=== PATIENT | female | born 1955 | race Caucasian/White ===

== ENCOUNTER → 2017-03-28 | Outpatient (CLI) | payer OTHER ==
[~2017-03-28] MED LIST: ALPR-475 PO; CYCL5TAB PO; GABA-826 PO; HYDR1TAB12 PO; MULT-224 PO; ST.300CA PO
== END | disposition home or self-care (01) ==
LOC: CFH 15:31
PROVIDERS: ATTEND Registered Nurse Registered Nurse First Assistant
DX: M51.36 Other intervertebral disc degeneration, lumbar region (principal); M41.86 Other forms of scoliosis, lumbar region; M51.26 Other intervertebral disc displacement, lumbar region; L05.91 Pilonidal cyst without abscess
CPT/HCPCS: 72110; 72148

== ENCOUNTER → 2017-06-06 | Outpatient (CLI) | payer OTHER ==
[~2017-06-06] MED LIST changes: +GABA600T2 PO; +VENL37.52 PO; +VENL75CA PO
[2017-06-06 12:42] LABS: BASOPHILS # (AUTO) 0.05 x10^3/uL (0-0.1); BASOPHILS % (AUTO) 1 % (0-1); EOSINOPHILS # (AUTO) 0.07 x10^3/uL (0-0.4); EOSINOPHILS % (AUTO) 1 % (1-7); LYMPHOCYTES # (AUTO) 1.95 x10^3/uL (1-3.4); LYMPHOCYTES % (AUTO) 32 % (22-44); MD NO; MEAN CORPUSCULAR HEMOGLOBIN 31.6 pg (27.0-34.8); MEAN CORPUSCULAR HGB CONC 34.3 g/dL (32.4-35.8); MEAN CORPUSCULAR VOLUME 91.9 fL (80-100); MEAN PLATELET VOLUME 8.8 fL (7.4-10.4); MONOCYTES # (AUTO) 0.69 x10^3/uL (0.2-0.8); MONOCYTES % (AUTO) 11 % (2-9); NEUTROPHILS % (AUTO) 55 % (42-75); PLATELET COUNT 198 x10^3/uL (130-400); RED BLOOD COUNT 4.72 x10^6/uL (3.82-5.3); RED CELL DISTRIBUTION WIDTH 12.4 % (9.6-15.2)
[2017-06-06 12:46] LABS: MICROSCOPIC NOT IND
[2017-06-06 12:47] LABS: CULTURE INDICATED? NO
[2017-06-06 12:53] LABS: INTERNATIONAL NORMALIZED RATIO 0.93 (0.93-1.1); PROTHROMBIN TIME 9.7 Seconds (9.6-11.5)
[2017-06-06 12:57] LABS: ANION GAP 8 mmol/L (5-15); CALCIUM 9.1 mg/dL (8.5-10.1); CHLORIDE 105 mmol/L (98-107); CREATININE 1.05 mg/dL (0.55-1.02)
== END | disposition home or self-care (01) ==
LOC: STAR 11:34
PROVIDERS: ATTEND Neurological Surgery
DX: Z01.818 Encounter for other preprocedural examination (principal); R94.31 Abnormal electrocardiogram [ECG] [EKG]; M51.36 Other intervertebral disc degeneration, lumbar region
CPT/HCPCS: 36415; 71046; 80048; 81003; 85025; 85610; 85730; 93005

== ENCOUNTER 2017-06-21 06:50 | Inpatient (IN) | payer OTHER ==
[~2017-06-21] VITALS: Ht 167.6 cm; Wt 81.9 kg
[2017-06-21] MEDS ORDERED: LACTATED RINGERS 1,000 ML IV SCH (07:07)
[2017-06-21] MEDS ORDERED: BUPIVACAINE/PF 0.5% ONE (07:08)
[2017-06-21] MEDS ORDERED: THROMBIN 5,000 UNIT VIAL TP ONE (07:08)
[2017-06-21] MEDS ORDERED: EPINEPHRINE 1 MG/ML, 1ML ONE (07:08)
[2017-06-21] MEDS ORDERED: BACITRACIN 50,000 UNIT ONE (07:09)
[2017-06-21] MEDS ORDERED: VANCOMYCIN 1,000 MG ONE (07:09)
[2017-06-21] MEDS ORDERED: FENTANYL PF 250 MCG/5ML ONE (08:17)
[2017-06-21] MEDS ORDERED: MIDAZOLAM 1 MG/ML, 2ML ONE (08:17)
[2017-06-21] MEDS ORDERED: PROPOFOL 50 ML ONE (08:17)
[2017-06-21] MEDS ORDERED: CEFAZOLIN 1,000 MG ONE (08:18)
[2017-06-21] MEDS ORDERED: SUCCINYLCHOLINE 20 MG/ML, 10ML ONE (08:18)
[2017-06-21] MEDS ORDERED: PROPOFOL 10 MG/ML, 20ML ONE (08:18)
[2017-06-21] MEDS ORDERED: LIDOCAINE GEL 2%, 5ML ONE ×2 (08:18)
[2017-06-21] MEDS ORDERED: DEXAMETHASONE 4 MG/ML, 1ML ONE (08:18)
[2017-06-21] MEDS ORDERED: ONDANSETRON 2MG/ML, 2ML ONE (08:18)
[2017-06-21] MEDS ORDERED: LIDOCAINE-MPF 2% ,5ML ONE (08:20)
[2017-06-21] MEDS ORDERED: CLINDAMYCIN 150 MG/ML, 6ML ONE (10:02)
[2017-06-21] MEDS ORDERED: MIDAZOLAM 1 MG/ML, 2ML IV PRN (10:30)
[2017-06-21] MEDS ORDERED: ALBUTEROL/IPRATROPIUM 2.5MG/0.5MG, 3 ML NPPB PRN (10:30)
[2017-06-21] MEDS ORDERED: DIAZEPAM 5 MG/ML, 2ML IVPush PRN (10:30)
[2017-06-21] MEDS ORDERED: LABETALOL 5MG/ML, 20ML IV PRN (10:30)
[2017-06-21] MEDS ORDERED: OXYcodone 5 MG/5 ML ORAL.SOL UDC PO PRN (10:30)
[2017-06-21] MEDS ORDERED: LORazepam 2 MG/ML, 1ML IVPush PRN (10:30)
[2017-06-21] MEDS ORDERED: PROMETHAZINE 25 MG/ML, 1ML IV PRN (10:30)
[2017-06-21] MEDS ORDERED: MEPERIDINE/PF 25MG/0.5ML IVPush PRN (10:30)
[2017-06-21] MEDS ORDERED: ACETAMINOPHEN 325 MG TABLET PO PRN (10:30)
[2017-06-21] MEDS ORDERED: ONDANSETRON 2MG/ML, 2ML IVPush PRN (10:30)
[2017-06-21] MEDS ORDERED: hydrALAzine 20 MG/ML, 1ML IV PRN (10:30)
[2017-06-21] MEDS ORDERED: FENTANYL PF 100 MCG/2ML ONE (11:20)
[2017-06-21] MEDS ORDERED: HYDROmorphone 2 MG/ML, 1ML ONE (11:20)
[2017-06-21] MEDS: FENTANYL PF 100 MCG/2ML IV PRN ×2 (11:35→12:00)
[2017-06-21] MEDS ORDERED: HYDROcodone/APAP 7.5-325MG/15ML UDC ONE (11:42)
[2017-06-21] MEDS ORDERED: HYDROcodone/APAP 7.5-325MG/15ML UDC PO PRN (12:00)
[2017-06-21] MEDS: HYDROmorphone 1 MG/ML, 1ML IV PRN ×5 (12:28→12:58)
[2017-06-21] MEDS ORDERED: morphine SULFATE 10 MG/ML, 1ML IV PRN (14:30)
[2017-06-21] MEDS ORDERED: BISACODYL 10 MG SUPP PR PRN (14:30)
[2017-06-21] MEDS ORDERED: DIPHENHYDRAMINE 25 MG CAPSULE PO PRN (14:30)
[2017-06-21] MEDS ORDERED: OXYcodone/APAP 5/325MG TABLET PO PRN (14:30)
[2017-06-21] MEDS ORDERED: MAGNESIUM HYDROXIDE 8%, 30ML UDC PO PRN (14:30)
[2017-06-21] MEDS ORDERED: TIZANIDINE 4MG TABLET PO SCH (14:30)
[2017-06-21] MEDS ORDERED: HYDROmorphone PCA 30 MG/30 ML IV PRN (14:30)
[2017-06-21] MEDS ORDERED: ONDANSETRON 2MG/ML, 2ML IV PRN (14:30)
[2017-06-21] MEDS ORDERED: DIPHENHYDRAMINE 50 MG/ML, 1ML IVPush PRN (14:30)
[2017-06-21] MEDS: NS + 20MEQ KCL 1,000 ML IV SCH (14:51)
[2017-06-21] MEDS: GABAPENTIN 300 MG CAPSULE PO SCH ×2 (14:51→20:01)
[2017-06-21] MEDS: CLINDAMYCIN 300 MG CAPSULE PO SCH (17:22)
[2017-06-21 18:48] VITALS: BP 103/66
[2017-06-21] MEDS: TIZANIDINE 4MG TABLET PO SCH (20:03)
[2017-06-21] MEDS: HYDROcodone/APAP 5/325 TABLET PO PRN (20:04)
[2017-06-21] MEDS ORDERED: VENLAFAXINE XR 37.5MG CAP.ER.24H PO SCH (21:00)
[2017-06-22 00:27] VITALS: BP 109/72
[2017-06-22] MEDS: CLINDAMYCIN 300 MG CAPSULE PO SCH (02:16)
[2017-06-22 04:23] VITALS: BP 101/65
[2017-06-22] MEDS: TIZANIDINE 4MG TABLET PO SCH ×2 (05:06→13:17)
[2017-06-22] MEDS: NS + 20MEQ KCL 1,000 ML IV SCH (05:08)
[2017-06-22] MEDS: HYDROcodone/APAP 5/325 TABLET PO PRN ×2 (08:44→13:17)
[2017-06-22] MEDS: GABAPENTIN 300 MG CAPSULE PO SCH (08:46)
[2017-06-22] MEDS ORDERED: OXYC-302 PO (08:58)
[2017-06-22] MEDS ORDERED: TIZA4TAB9 PO (08:58)
[2017-06-22] MEDS ORDERED: SENNA/DOCUSATE TABLET PO SCH (09:00)
[2017-06-22] MEDS ORDERED: VENLAFAXINE XR 37.5MG CAP.ER.24H PO SCH (09:00)
[2017-06-22 09:12] VITALS: BP 101/71
[2017-06-22 13:09] VITALS: BP 115/59
== END 2017-06-22 13:28 | disposition home or self-care (01) | DRG 517 ==
LOC: ORIP 06:50 → 4NOR 13:49
PROVIDERS: ADMIT Neurological Surgery; ATTEND Neurological Surgery
PROC: 01NB0ZZ Release Lumbar Nerve, Open Approach (ICD-10-PCS; principal; 2017-06-21 10:00)
DX: M51.16 Intervertebral disc disorders with radiculopathy, lumbar region (principal); M48.061 Spinal stenosis, lumbar region without neurogenic claudication; Z88.0 Allergy status to penicillin; Z88.8 Allergy status to other drugs, medicaments and biological substances
CPT/HCPCS: 72100; 95938; 95941; J0171; J0690; J1100; J1170; J2250; J2405; J2704; J3010; J3370; J3480; J3490; J0330; J7120

== ENCOUNTER → 2018-06-06 | Outpatient (CLI) | payer OTHER ==
[~2018-06-06] MED LIST changes: +GADOBUTROL 7.5 MMOL/7.5 ML PFS ONE; +OXYC-302 PO; +TIZA4TAB9 PO
== END | disposition home or self-care (01) ==
LOC: CFH 09:26
PROVIDERS: ATTEND Family Medicine
DX: G43.809 Other migraine, not intractable, without status migrainosus (principal); G44.52 New daily persistent headache (NDPH); I67.82 Cerebral ischemia
CPT/HCPCS: 70553; A9585

== ENCOUNTER → 2018-09-29 | Outpatient (CLI) | payer OTHER ==
[~2018-09-29] MED LIST changes: -GABA600T2 PO; +GABA600T7 PO; -GADOBUTROL 7.5 MMOL/7.5 ML PFS ONE; -HYDR1TAB12 PO; +HYDR1TAB13 PO; -MULT-224 PO; +MULT-642 PO
== END | disposition home or self-care (01) ==
LOC: CFH 10:30
PROVIDERS: ATTEND Family Medicine
DX: M48.061 Spinal stenosis, lumbar region without neurogenic claudication (principal); M47.816 Spondylosis without myelopathy or radiculopathy, lumbar region; M51.26 Other intervertebral disc displacement, lumbar region
CPT/HCPCS: 72148

== ENCOUNTER → 2018-10-23 | Outpatient (CLI) | payer OTHER | END | disposition home or self-care (01) | LOC: CFH 10:58 | PROVIDERS: ATTEND Physician Assistant Surgical | DX: M47.816 Spondylosis without myelopathy or radiculopathy, lumbar region (principal) | CPT/HCPCS: 72110 ==

== ENCOUNTER 2018-11-21 11:51 | Outpatient (CLI) | payer OTHER | END 2018-11-21 23:59 | disposition home or self-care (01) | LOC: CFH 11:51 | PROVIDERS: ATTEND Student in an Organized Health Care Education/Training Program | DX: R07.81 Pleurodynia (principal) ==

== ENCOUNTER → 2019-03-31 | Outpatient (CLI) | payer OTHER ==
[~2019-03-31] MED LIST changes: -ALPR-475 PO; +ALPR0.5T7 PO
== END | disposition home or self-care (01) ==
LOC: CFH 09:32
PROVIDERS: ATTEND Family Medicine
DX: I10 Essential (primary) hypertension (principal); M47.894 Other spondylosis, thoracic region; Z82.49 Family history of ischemic heart disease and other diseases of the circulatory system
CPT/HCPCS: 71046

== ENCOUNTER → 2019-04-22 | Outpatient (CLI) | payer OTHER | END | disposition home or self-care (01) | LOC: CARD 11:34 | PROVIDERS: ATTEND Family Medicine | DX: R00.0 Tachycardia, unspecified (principal); I10 Essential (primary) hypertension; E78.5 Hyperlipidemia, unspecified; F32.9 Major depressive disorder, single episode, unspecified; Z88.8 Allergy status to other drugs, medicaments and biological substances; Z79.899 Other long term (current) drug therapy | CPT/HCPCS: 93225; 93226 ==